=== PATIENT | male | born 1975 | race Caucasian/White ===

== ENCOUNTER 2022-03-23 12:32 | Outpatient (CLI) | payer OTHER, SELFPAY ==
--- NOTE | ~2022-03-23 | XR_ITS ---
Right Hand Technique: PA, oblique, and lateral views were obtained. Clinical History: Pain Findings: No acute fracture or dislocation is seen. Osseous alignment is anatomic. Joint spaces are p reserved. Soft tissues are unremarkable. Impression: Unremarkable right hand. Reviewed, dictated and finalized at location M. CAL STAFFING COORDINATOR Impression: Unremarkable right hand.
--- NOTE | ~2022-03-23 | XR_ITS ---
Right wrist Technique: PA, oblique, lateral, and ulnar deviation views were obtained. Clinical History: Pain Findings: No acute fracture or dislocation is seen. Osseous alignment is anatomic. Joint spaces are p reserved. Soft tissues are unremarkable. Impression: Unremarkable right wrist radiographs. Reviewed, dictated and finalized at location . RMATICA MDM DEVELOPER Impression: Unremarkable right wrist radiographs.
== END 2022-03-23 12:33 | disposition home or self-care (01) ==
LOC: ANHIMG 12:35
PROVIDERS: PCP Family Medicine; Visit Provider Physician Assistant
DX: M25.531 Pain in right wrist (principal)
CPT/HCPCS: 73110; 73130

== ENCOUNTER 2023-02-25 02:34 | Day surgery (SDC) | payer OTHER, SELFPAY ==
[2023-02-14 14:23] VITALS: BMI 32.8
--- NOTE | 2023-02-23 10:24 | SUR.PREOP ---
Patient called regarding upcoming procedure. Reviewed preop instructions, appointment times, and procedure prep.
[2023-02-25 09:45] VITALS: BP 125/88; PULSE 91; RESP 18; TEMP 36.4; O2SAT 100
[2023-02-25] MEDS: LACTATED RINGERS 1,000 ML 150 ML IV CONT (09:55)
--- NOTE | 2023-02-25 10:18 | WPDANESEPPF ---
Anes - Initial Pre Proc Eval Procedure: Operation Date: 02/25/23 11:00 Proposed Procedures p Screening Colonoscopy - Dominic Munguia MD Date/Time: 02/25/23 10:18 Surgeon: Dominic Munguia MD Pre Op Diagnosis: neoplasm screening Patient Data Age: 47 Gender: M Height: 1.73 m Weight: 98.2 kg Last Vital Signs Temp 97.6 F 02/25/23 09:45 Pulse 91 02/25/23 09:45 Resp 18 02/25/23 09:45 BP 125/88 02/25/23 09:45 Pulse Ox 100 02/25/23 09:45 O2 Del Method Room Air 02/25/23 09:45 Allergies Allergy/AdvReac Type Severity Reaction Status Date / Time No Known Allergies Allergy Verified 02/25/23 09:43 Home Medications Medication Instructions Recorded Confirmed Type No Home Medications 11/25/21 02/14/23 History Patient hx anesthesia problems: none Family hx anesthesia problems: none Results Review: All pre-operative results and documents have been reviewed as part of the pre-operative evaluation. 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 Surgical History Surgical History History of melanoma Family History Family History Father Diabetes mellitus Social History Social History Years smoked: 3 Smoking status: Former smoker Tobacco type: cigarettes Second hand tobacco smoke exposure: No Smoking end date: 03/21/10 Alcohol intake: current Alcohol use details: 2-3 drinks monthly Substance use: never Substance use type: does not use Living arrangements: with family Occupation/Education: occupation Gender identity (if verbalized by the patient): Male Spiritual care concerns: No Anes - Eval Final PreProcedure Day of Procedure 02/25/23 10:18 Patient weight: obese Heart: regular rate and rhythm Lungs: clear to auscultation Airway: Mallampati scale class II Neurological: alert and oriented Last oral intake: >/= 8 hours ASA classification: II Emergent: no Anesthetic plan: proceed Anesthesia type and monitoring: general GIVS and standard monitoring Results Review: All pre-operative results and documents have been reviewed as part of the pre-operative evaluation. Informed Consent: The patient's anesthetic plan and its attendant risks and benefits were discussed with the patient/family/POA. Questions were solicited and answers provided to the satisfaction of the patient/family/POA.
--- NOTE | 2023-02-25 10:40 | PM.HPGS ---
History of Present Illness History of Present Illness Consent: Risks, benefits, and alternatives have been discussed and questions answered. Patient agrees to proceed with procedure. Chief complaint: neoplasm screening Narrative: Bebo Turner Jr. is a 47 year old male here for first screening colonoscopy Review of Systems Constitutional: Constitutional: Denies headache(s) and Denies weakness Eyes: Eyes: Denies blurry vision ENT: Reports Normal hearing present, Denies headache(s) and Denies neck pain Cardiovascular: Cardiovascular: Denies chest pain and Denies dyspnea Respiratory: Respiratory: Denies dyspnea Gastrointestinal: Gastrointestinal: Reports no additional gastrointestinal complaints Genitourinary: Genitourinary: Denies dysuria Musculoskeletal: Musculoskeletal: Denies neck pain Integumentary/Breasts: Skin/Breast: Denies dry skin Neurologic: Reports Normal hearing present, Denies headache(s) and Denies weakness Psychiatric: Psychiatric: Denies anxiety Endocrine: Endocrine: Denies change in body appearance Hematologic/Lymphatic: Hematologic/Lymphatic: Denies easy bleeding Allergic/Immunologic: Allergic/Immunologic: Denies urticaria PMFSH Past Medical History Medical History (Updated 02/25/23 @ 10:41 by Dominic Munguia MD) Acquired hypothyroidism Allergic rhinitis Colon cancer screening Obesity 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 Surgical History Surgical History History of melanoma Family History Family History Father Diabetes mellitus Social History Social History Years smoked: 3 Smoking status: Former smoker Tobacco type: cigarettes Second hand tobacco smoke exposure: No Smoking end date: 03/21/10 Alcohol intake: current Alcohol use details: 2-3 drinks monthly Substance use: never Substance use type: does not use Living arrangements: with family Occupation/Education: occupation Gender identity (if verbalized by the patient): Male Spiritual care concerns: No Meds Home Medications and Allergies Home Medications Medication Instructions Recorded Confirmed Type No Home Medications 11/25/21 02/14/23 History Allergies Allergy/AdvReac Type Severity Reaction Status Date / Time No Known Allergies Allergy Verified 02/25/23 09:43 Vital Signs Vital Signs - 24 hr 02/25/23 09:45 Temperature 97.6 F Pulse Rate 91 Respiratory Rate 18 Blood Pressure 125/88 Pulse Oximetry 100 Oxygen Delivery Room Air Exam Const: General: comfortable and no acute distress HENMT: Face/Nose/Sinus: Normal nares present Eyes: General: appearance normal, both eyes and all related structures Neck: Neck: no JVD Resp: Auscultation: clear to auscultation bilaterally Cardio: Rate: regular rate Rhythm: regular rhythm GI: Inspection: non-distended GI Palp: Yes Soft to palpation Skin: General skin exam: normal color Neuro: General: gait normal Speech: normal speech Extrem: General: normal to inspection Psych: Mental Status: mental status grossly normal Assessment and Plan Assessment and plan (1) Colon cancer screening: Code(s): Z12.11 - Encounter for screening for malignant neoplasm of colon Status: Acute Assessment and Plan: colonoscopy
[2023-02-25 11:05] VITALS: BP 122/87; PULSE 72; RESP 17; O2SAT 100
[2023-02-25 11:15] VITALS: BP 125/84; PULSE 69; RESP 20; O2SAT 98
[2023-02-25 11:26] VITALS: BP 118/81; PULSE 63; RESP 17; O2SAT 98
== END 2023-02-25 11:44 | disposition home or self-care (01) ==
PROVIDERS: PCP Family Medicine; Visit Provider Internal Medicine Gastroenterology
PROC: 0DJD8ZZ Inspection of Lower Intestinal Tract, Via Natural or Artificial Opening Endoscopic (ICD-10-PCS; CPT 45378; principal; 2023-02-25 11:00)
DX: Z12.11 Encounter for screening for malignant neoplasm of colon (principal); D12.5 Benign neoplasm of sigmoid colon; Z87.891 Personal history of nicotine dependence; E66.9 Obesity, unspecified; Z68.32 Body mass index [BMI] 32.0-32.9, adult
CPT/HCPCS: 45385; 88305; J2001; J2704; J7120

== ENCOUNTER 2024-09-20 08:53 | Outpatient (CLI) | payer OTHER, SELFPAY ==
--- NOTE | ~2024-09-20 | MR_ITS ---
MRI of the right wrist Technique: Coronal T1 weighted and proton density fat sat images, and axial and sagittal proton-densi ty and proton-density fat-sat images were acquired. Clinical History: Pain Findings: Axial images are degraded by motion artifact. No evidence of scapholunate ligament tear or scapholunate interval widening. Lunotriquetral ligament appears intact. TFCC appears intact. Bone marrow signals are essentially unremarkable. No fracture or marrow edema seen. Joint spaces are intact. No evidence for erosive or inflammatory arthropathy. No joint effusion evident. Flexor and extensor tendons appear intact. No soft tissue mass or fluid collection seen. Possible mil d tendinosis of the extensor carpi ulnaris tendon. IMPRESSION: Possible mild tendinosis of the extensor carpi ulnaris tendon. No other significant abnormality identified. Reviewed, dictated and finalized at [facility].
== END 2024-09-20 08:54 | disposition home or self-care (01) ==
LOC: GOSHIMG 08:53
PROVIDERS: PCP Family Medicine; Visit Provider Orthopaedic Surgery
DX: M25.531 Pain in right wrist (principal)
CPT/HCPCS: 73221

== ENCOUNTER 2024-10-01 12:37 | Outpatient (CLI) | payer OTHER, SELFPAY | END 2024-10-01 12:38 | disposition home or self-care (01) | LOC: ANHBWCIMG 12:39 | PROVIDERS: PCP Family Medicine; Visit Provider Orthopaedic Surgery | DX: M25.562 Pain in left knee (principal) | CPT/HCPCS: 73564 ==

== ENCOUNTER 2024-10-10 13:45 | Outpatient (CLI) | payer OTHER, SELFPAY ==
--- NOTE | ~2024-10-10 | MR_ITS ---
EXAMINATION: MR knee LT wo con DATE: 10/10/2024 14:30 INDICATION: Left knee pain TECHNIQUE: Magnetic resonance imaging (MRI) of the left knee was performed without intravenous contra st. Sequences included coronal PD-weighted FSE, coronal PD-weighted FS FSE, sagittal T2-weighted FSE , sagittal PD-weighted FS FSE and axial PD weighted fat saturated FSE. COMPARISON: None. FINDINGS: Medial compartment: Medial meniscal with longitudinal horizontal tear plane extending from the body to the posterior horn There is subluxation of a meniscal flap from the anterior meniscal body. This extends into the infer ior gutter and there is truncation of the normally sharp free edge at the junction the anterior horn and body of the meniscus suggesting the tear may be complex with additional tear plane obscured by th e displacement of the meniscal flap. Articular cartilage is normal. Lateral compartment: Lateral meniscus is normal. Articular cartilage is normal. Patellofemoral compartment: Articular cartilage is normal. Ligaments and tendons: Anterior and posterior cruciate ligaments are normal. The medial collateral ligament and fibular ilana ateral ligament complex are normal. The extensor mechanism is normal. The visualized medial and later al hamstring tendons as well as the iliotibial band are normal. Fluid: Physiologic amount of fluid in the joint space. No loose osteochondral bodies identified. Osseous/other: Bone alignment is normal. There is focal marrow edema surrounding a small juxta articular erosion anibal ng the medial rim of the medial tibial plateau along side the displaced meniscal flap. Marrow signal is otherwise normal. No fracture or pathologic marrow replacing process. IMPRESSION: 1. Medial meniscal tear, likely complex with small displaced meniscal flap extending inferiorly from the anterior meniscal body. Reviewed, dictated and finalized at location A. IMPRESSION: 1. Medial meniscal tear, likely complex with small displaced meniscal flap exte nding inferiorly from the anterior meniscal body.
== END 2024-10-10 13:46 | disposition home or self-care (01) ==
LOC: GOSHIMG 13:45
PROVIDERS: PCP Family Medicine; Visit Provider Orthopaedic Surgery
DX: S83.242A Other tear of medial meniscus, current injury, left knee, initial encounter (principal); X58.XXXA Exposure to other specified factors, initial encounter
CPT/HCPCS: 73721

== ENCOUNTER 2024-11-22 01:27 | Day surgery (SDC) | payer OTHER, SELFPAY ==
--- OUTSIDE RECORDS SUMMARY | 2023-08-08 04:40 | XMS_ITS ---
Author Organization [facility] Address [address] [place], [place] [id number] Care Team Providers Care Research Technologist Name Role Phone Edvin Anaya Unavailable Unavailable JENY POOL Unavailable [phone] REASON FOR VISIT *Fungal nail check Encounters Encounter Location Date Provider Diagnosis [facility] [place] [address] [address] [facility] [address] [place], [place] [id number] 08/08/2023 JENY POOL Plan Of Treatment No Information Progress Notes * Bebo TURNERDOB:1975 (49 yo M)Acc No.[id number]:08/08/2023 Patient: Bebo FRANCO Provider: Brisa Pool DPM :1975 A ge:48 Y S ex:Male Date:08/08/2023 Address:[facility] [address] [facility] Subjective: * Chief Complaints: * 1 . *Fungal nail check. * Medical History: Objective: * Vitals: Assessment: Plan: * Treatment: * Billing Information: * Visit Code: * Procedure Codes: * Electronic signature of JENY POOL DPM on 11/22/2024 at 01:30 AM CDT Sign off status: Pending * Provider: Brisa Pool DPM Date: 08/08/2023 Generated for Stephanie narvaez/Sanjuana/eTransmitting on: 11/22/2024 01:30 AM CDT
[2024-11-13 09:29] VITALS: BMI 32.8
--- NOTE | 2024-11-13 09:39 | PC.NURSE ---
Report to the Outpatient Waiting Room, entrance under the green pavilion located off [facility], at time _0600_ on date 11/22/24. Planned Procedure Time: __0730_.? Time changes happen often and if your time is changed the preop area will call you the afternoon before. - You and your visitor will be asked to self-screen and do not enter if you have any COVID symptoms. Please call surgeon if you need to reschedule. - A mask is optional within the hospital at this time. Patients may have clear liquids (water, carbonated beverages, clear teas, apple juice) until 3 hours prior to surgery with a maximum of 20 ounces. - No food from midnight until time of surgery and no smoking, or chewing tobacco (or any form of nicotine). No chewing gum, candy or mints. - Infants may have breast milk until 4 hours before surgery, infant formula 6 hours prior to surgery. - Children will be allowed to drink immediately following surgery.? If applicable, please bring a bottle or sippy cup to assist with drinking. Juice, water, soda, and popsicles are readily available.? For infants on formula, please bring formula the day of surgery.? Pacifiers are allowed. Take only the following medications with a SIP of water on the morning of surgery: NONE DO NOT STOP ANY OF YOUR OTHER PRESCRIPTION MEDICATIONS PRIOR TO SURGERY EXCEPT THE FOLLOWING Hold all vitamins and supplements for 3 days per anesthesiologist. Medications to discontinue per physician Date to take last dose Please no make-up, nail cuban, hairspray, perfume, deodorant, or body powder the day of surgery.? No jewelry (including any body piercings) or valuables the day of surgery, leave them at home.? Please take a shower or bath the night before, or the morning of, surgery with an antibacterial soap.? Wear comfortable, loose fitting clothing.? Children are encouraged to wear pajamas. - Jewelry must be removed prior to entering the operating room.? Rings and piercings that are not removed may be cut off. - The hospital will not accept responsibility for valuables.? - Please leave all valuables, including medications, at home the day of surgery. If you are going home after surgery, a licensed class c truck driver must drive you home.? - NO public transportation without another adult if you receive anesthesia. - We recommend that an adult stay with you for 24 hours following discharge. - We also recommend that you do not drive, make important decision, drink alcoholic beverages, or take any drugs that were not prescribed by your health care provider for at least 24 hours after your discharge time. For Pediatric surgeries, we recommend two adults accompany the child home. Follow any additional instructions given to you from your surgeon. Telephone instructions given to _PATIENT_and asked if any additional questions and then verbalized understanding. Patient advised to call surgeon office or pre surgery nurse liaison [phone] if any additional questions.
--- NOTE | 2024-11-21 14:34 | P.HP_ITS ---
H&P: HPI History of Present Illness Date/Time: 11/21/24 14:34 Chief Complaint: Left knee pain Narrative: 49-year-old gentleman with left knee pain and swelling persistent for the past year. Initially started when twisted the left knee pulling a tree. Not relieved with conservative measures. MRI shows medial meniscus tear. Presents for operative treatment. Review of Systems Constitutional: Constitutional: Denies fever(s) Eyes: Eyes: Denies blurry vision ENT: Reports Normal hearing present Cardiovascular: Cardiovascular: Denies chest pain and Denies dyspnea Respiratory: Respiratory: Denies dyspnea and Denies wheezing Gastrointestinal: Gastrointestinal: Denies abdominal pain Genitourinary: Genitourinary: Denies urinary urgency Musculoskeletal: Musculoskeletal: Reports as per HPI and Denies numbness Integumentary/Breasts: Skin/Breast: Denies changing lesions and Denies sores Neurologic: Reports Normal hearing present, Denies behavioral changes, Denies confusion, Denies numbness and Denies convulsions Psychiatric: Psychiatric: Denies behavioral changes, Denies confusion and Denies hallucinations Endocrine: Endocrine: Denies heat intolerance Hematologic/Lymphatic: Hematologic/Lymphatic: Denies easy bleeding Allergic/Immunologic: Allergic/Immunologic: Denies wheezing COUNTS INCLUDE 234 BEDS AT THE [facility] Past Medical History Medical History (Updated 11/21/24 @ 14:35 by Willy Nichole MD) Left knee pain Acute medial meniscus tear of left knee History of colon polyps Family history of colon cancer Colon cancer screening 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 Obesity Allergic rhinitis Acquired hypothyroidism Surgical History Surgical History History of melanoma Family History Family History Father Diabetes mellitus Mother Carcinoma of colon Social History Social History Smoking packs per day: 0.20 Smoking cigarettes per day: 4.0 Years smoked: 3 Smoking pack-years: 0.60 Smoking status: Former smoker Tobacco type: cigarettes Second hand tobacco smoke exposure: No Smoking end date: 03/21/10 Additional smoking assessment comments: SMOKED DURING HIGH SCHOOL Alcohol intake: current Alcohol use details: 2 PER MONTH Substance use: never Substance use type: does not use Living arrangements: with family Occupation/Education: occupation Gender identity (if verbalized by the patient): Male Spiritual care concerns: No Meds Home Medications and Allergies Home Medications ?Medication ?Instructions ?Recorded ?Confirmed ?Type No Home Medications 11/25/21 11/13/24 H istory Allergies Allergy/AdvReac Type Severity Reaction Status Date / Time No Known Allergies Allergy Verified 11/13/24 09:29 Assessment and Plan Assessment and plan (1) Acute medial meniscus tear of left knee: Qualifiers: Encounter type: subsequent encounter Qualified Code(s): S83.242D - Other tear of medial meniscus, current injury, left knee, subsequent encounter Code(s): S83.242A - Other tear of medial meniscus, current injury, left knee, initial encounter Status: Acute Assessment and Plan: MRI of the left knee demonstrates medial meniscus tear, chondromalacia, effusion and synovitis. Failed conservative treatment. Discussed nonoperative and operative treatment options with the patient. Risks and benefits of each as well as alternatives were reviewed. All of the patient's questions were answered. The risks of surgery reviewed including but not limited to: Neurovascular damage, wound complication, infection, blood clot, pulmonary embolus, stroke, myocardial infarction, and anesthetic risks up to and including . Continued pain and possible dysfunction were explained. Specific risks of the procedure including later recurrence of deformity. No guarantees were offered. If complications occur, the patient understands the need for further treatment, possible further surgery. Patient verbalizes understanding and wishes to proceed. PLAN: Left knee arthroscopy with partial meniscectomy, chondroplasty, synovectomy, proceed as indicated. (2) Left knee pain: Qualifiers: Chronicity: acute Qualified Code(s): M25.562 - Pain in left knee Code(s): M25.562 - Pain in left knee Status: Acute
[2024-11-22] VITALS (7 sets, daily range): BP systolic 103–123; BP diastolic 62–87; PULSE 61–74; RESP 12–18; TEMP 36–36.8; O2SAT 96–100
--- OUTSIDE RECORDS SUMMARY | 2024-11-22 01:30 | XMS_ITS | Clinical Summary ---
Author Organization [facility] Address [address] [place] [address] Care Team Providers Care Outside Installer Apprentice Name Role Phone Edvin Anaya MD Primary Care Provider Allergies No known active allergies Medications levothyroxine sodium (TIROSINT) 50 mcg capsule Take 50 mcg by mouth daily. Active azithromycin (ZITHROMAX) 250 mg tablet Take 2 tabs (500 mg) by mouth today, than 1 tab (250 mg) daily for 4 days. 6 tablet 04/24/2022 Active Active Problems No known active problems Medical History Medical History Date Comments Hypothyroidism Family History Medical History Relation Name Comments Diabetes Father Relation Name Status Comments Father Social History Tobacco Use Types Packs/Day Years Used Date Smoking Tobacco: Former Smokeless Tobacco: Never Alcohol Use Standard Drinks/Week Comments Yes 0 (1 standard drink = 0.6 oz pur e alcohol) social Personal Safety Answer Date Recorded Getting School Help Needed Not on file 03/03 Sex and Gender Information Value Date Recorded Sex Assigned at Not on file Legal Sex Male 9:23 PM PROGRAM CHECKER Gender Identity Not on file Sexual Orientation Not on file Obstetrics History Last Filed Vital Signs Vital Sign Reading Time Taken Comments Blood Pressure 120/88 03/05/2023 10:24 AM PROGRAM CHECKER Pulse 92 03/05/2023 10:24 AM PROGRAM CHECKER Temperature 37.3 C (99.2 F) 03/05/2023 10:24 AM PROGRAM CHECKER Respiratory Rate 18 03/05/2023 10:24 AM PROGRAM CHECKER Oxygen Saturation 98% 03/05/2023 10:24 AM PROGRAM CHECKER Inhaled Oxygen Concentration - - Weight 95.3 kg (210 lb) 03/05/2023 10:24 AM PROGRAM CHECKER Height 172.7 cm (5' 8) 03/05/2023 10:24 AM PROGRAM CHECKER Body Mass Index 31.93 03/05/2023 10:24 AM PROGRAM CHECKER Plan of Treatment Health Maintenance Due Date Last Done Comments Colon Cancer Screening-Colonoscopy 1975 Depression Screening 1975 Hepatitis C Screening 1975 Hepatitis B Screening 07/12/1995 Regular Well Visit/Exam 18-64 07/12/1995 Covid-19 Vaccine ( season) 2024 09/14/2021, 08/07/2020, 07/09/2020 Influenza Vaccine (#1) 2024 , 01/07/2021, 01/01/2020, Additional history exists DTaP/Tdap/Td Vaccine (3 - Td or Tdap) 03/17/2032 03/17/2022, 12/08/2015 Pneumococcal vaccine <65 Aged Out No longer eligible based on patient's age to complete this topic Insurance [facility] Care Teams Outside Installer Apprentice Relationship Specialty Start Date End Date Edvin Anaya MD [address] [facility] [address] [place] [address] PCP - General 06/10/19
--- OUTSIDE RECORDS SUMMARY | 2024-11-22 01:30 | XMS_ITS | Patient Health Record ---
Author Organization [facility] Address [address] [place], [place] [id number] Care Team Providers Care Property Supervisor Name Role Phone Edvin Anaya Unavailable Unavailable Allergies No Known Allergies Reason For Referral No Information Immunizations Vaccine Route Administration Date Status Comme nts Pneumococcal conjugate PCV 13 Unknown 06/27/2023 Refuse d Influenza, high dose seasonal Unknown 06/27/2023 Refuse d Social History Tobacco Use: Social History Observation Description Date Details (start date - stop date) Smoker, current status unknown NA - NA Tobacco Control (Standard) Question Answer Notes Tobacco use: Smoker, current status unknown Plan Of Treatment Pending Test Test Name Order Date Liver Function Test (LFT) 06/27/2023 Insurance Providers Payer Name Payer Address Payer Phone Subscriber Number Group Number Insured Name Patient Relationship to Insured Coverage Start Date Coverage End Date [employer] [address] [place] [id number] Bebo Turner Self - patient is the insured Medical (General) History Medical History History ICD Code Diabetic
--- OUTSIDE RECORDS SUMMARY | 2024-11-22 01:30 | XMS_ITS | Clinical Summary ---
Author Organization [facility] [employer] Address [address] [place] [address] Care Team Providers Care Housekeeper Caregiver Name Role Phone Edvin Anaya MD Primary Care Provider Source Comments [facility] [employer],non-owned Affiliates and Associated Physician Practices is amultiple site organization consisting of ambulatory clinics and hospital sitesin [place], [place], [place] and [place]. This disclosure is being madepursuant to the Care Everywhere program and may not contain all information available regarding this patient. Last updated 17.[facility] [employer] Allergies No known active allergies Medications * Be aware that medications may not be up to date on this document. Alwaysverify current medications with the patient. 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 Gender Identity Not on file Sexual Orientation Not on file Last Filed Vital Signs Vital Sign Reading Time Taken Comments Blood Pressure 134/84 12/01/2020 3:32 PM CDT Pulse 90 12/01/2020 3:32 PM CDT Temperature 36.7 C (98.1 F) 12/01/2020 3:32 PM CDT Respiratory Rate 18 11/29/2020 2:33 PM CDT Oxygen Saturation 98% 12/01/2020 3:32 PM CDT Inhaled Oxygen Concentration - - Weight 95.3 kg (210 lb) 12/01/2020 3:32 PM CDT Height 170.2 cm (5' 7) 12/01/2020 3:32 PM CDT Body Mass Index 32.89 12/01/2020 3:32 PM CDT Plan of Treatment Health Maintenance Due Date Last Done Comments COLOGUARD (AGES 45-75) - COL ON CA SCREENING 1977 COLON MONITORING 1977 COLONOSCOPY - COLON CA SCREENING 1977 CT COLONOGRAPHY - COLON CA SCREENING 1977 Colorectal Cancer Screening 1977 FIT - COLON CA SCREENING 1977 FLEX SIG - COLON CA SCREENING 1977 LIPID TESTING 1977 HIV SCREENING 1992 HEPATITIS C SCREENING 07/07/1995 DTAP/TDAP/TD VACCINES (1 - Tdap) 1996 HEPATITIS B VACCINE (1 of 3 - 19+ 3-dose series) 1996 SCREENING FOR DIABETES 12/01/2020 COVID-19 VACCINE (1 - 2023-2 5 season) 2023 DEPRESSION SCREENING 03/21/2024 INFLUENZA VACCINE (#1) 2024 ZOSTER VACCINE (1 of 2) 07/12/2027 HIB VACCINE Aged Out No longer eligi ble based on patient's age to complete this topic HPV VACCINE Aged Out No longer eligi ble based on patient's age to complete this topic MENINGOCOCCAL (Group B) VACC INE SHARED DECISION-MAKING Aged Out No longer eligibl e based on patient's age to complete this topic MENINGOCOCCAL GROUPS A/C/Y/W VACCINE Aged Out No longer eligible b ased on patient's age to complete this topic PNEUMOCOCCAL VACCINE Aged Out No long er eligible based on patient's age to complete this topic [facility] [place]: [facility] [id number] [place] [address] FOR[facility]LY [facility] SELF PAY NO INSURANCE Member Subscriber Plan / Payer (Ef fective for All Dates) Name:Paola Turner Jr Member ID:Not on file Relation to Subscriber:Not on file Name:PAOLA TURNER Subscriber ID:Not on file Address: [facility] [place] [address] Payer ID:Not on file Group ID:Not on file Type:Self Pay Address: [place], [place] Care Teams Housekeeper Caregiver Relationship Specialty Start Date End Date Edvin Anaya MD [address] [place] [address] PCP - General Family Medicine 04/28/19
--- OUTSIDE RECORDS SUMMARY | 2024-11-22 01:30 | XMS_ITS | Encounter Summary ---
Author Organization [facility] Address [address] [facility] [place] [address] Care Team Providers Care Monorail Charger Operator Name Role Phone Edvin Anaya MD Primary Care Provider [phone] Encounter Details Date Type Department Care Team (Late st Contact Info) Description 09/08/2022 Lab Requisition [facility] - DermPath Lab [address] [facility] 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 Gender Identity Not on file Sexual Orientation Not on file documented as of this encounter Plan of Treatment Not on file documented as of this encounter Procedures Procedure Name Priority Date/Time Associated Diagnosis Comments DERMATOPATHOLOGY Routine 09/07/2022 12:0 0 AM CDT documented in this encounter Results * DERMATOPATHOLOGY (09/07/2022 12:00 AM CDT) Case Report Dermatopathology Report Case: [id number] Authorizing Provider: Howard Claudio MD Collected: 09/07/2022 12:00 AM Ordering Location: [facility] DermPath Lab Received: 09/09/2022 06:24 AM Pathologist: Mitchell Cash MD Specimen: Skin, right scalp 3 3:04 PM CDT DERMATOPATHOLOGY LABORATORY Final Diagnosis Specimen A. SKIN, right scalp: SEBORRHEIC KERATOSIS, IRRITATED AND INFLAMED (L82.0) 3 3:04 PM T DERMATOPATHOLOGY LABORATORY at 1504 CDT Clinical History Nevus vs MM Path#[id number] 3 3:04 PM CDT DERMATOPATHOLOGY LABORATORY Gross Description Specimen A: Received is one formalin filled container labeled with the patient's name and designated right scalp. The specimen consists of a shave biopsy measuring 7x16x2 and 2x9x1 mm. Jar 0. 3 3:04 PM CDT DERMATOPATHOLOGY LABORATORY Microscopic Description Specimen A. SKIN, right scalp: Sections show acanthosis, papillomatosis, hyperkeratosis, and squamous eddies. There is a lymphohistiocytic infiltrate within the papillary dermis. 3 3:04 PM CDT DERMATOPATHOLOGY LABORATORY Disclaimer An external and internal positive and negative controls are appropriate for the histochemical, immunohistochemical and immunofluorescence stain(s) in this case (if any), except where stated explicitly. The performance characteristics of the stain(s) cited in this report were developed and its performance characteristic determined by the Dermatopathology Laboratory at [facility], directed by Dr. Timoteo Cash. These tests need not be, and therefore are not, approved by the [place] Food and Drug Administration. The tests are used for clinical purposes. Billing Codes Specimen Charges Stain Charges 90193 1 3 3:04 PM CDT DERMATOPATHOLOGY LABORATORY Embedded Images 3 3:04 PM CDT DERMATOPATHOLOGY LABORATORY Pathology/Cytolog y TISSUE SPECIMEN FROM SKIN / Unknown 09/07/2022 09/09/2022 6:24 AM CDT us Howard Claudio MD LAB - PATHOLOGY/CYTOLOGY ORDER MATHIEU Final Result DERMATOPATHOLOGY LABORATORY [facility] - Department of Dermatology [address] [place], [place] [address] [place] [address] documented in this encounter Visit Diagnoses Not on filedocumented in this encounter Care Teams Monorail Charger Operator Relationship Specialty Start Date End Date Edvin Anaya MD [address] [place] [address] PCP - General Family Medicine 04/28/19 documented as of this encounter
[2024-11-22] MEDS: KETOROLAC 15 MG/ML VIAL (*BKC) IV PUSH (07:00)
[2024-11-22] MEDS: ACETAMINOPHEN 500 MG TABLET 1000 MG PO (07:00)
[2024-11-22] MEDS: LACTATED RINGERS 1,000 ML 30 ML IV CONT (07:00)
--- NOTE | 2024-11-22 07:16 | WPDANESEPPF ---
Anes - Initial Pre Proc Eval Procedure: Operation Date: 11/22/24 07:30 Proposed Procedures p Left Knee Arthroscopy, Debride Meniscus, Synovectomy, Chondroplasty, Proceed As Indicated - Willy Nichole MD Date/Time: 11/22/24 07:16 Surgeon: Willy Nichole MD Pre Op Diagnosis: left knee pain, medial meniscal tear,chondromylaci Patient Data Age: 49 Gender: M Height: 1.7 m Weight: 95 kg Allergies Allergy/AdvReac Type Severity Reaction Status Date / Time No Known Allergies Allergy Verified 11/13/24 09:29 Home Medications ?Medication ?Instructions ?Recorded ?Confirmed ?Type No Home Medications 11/25/21 11/13/24 History Patient hx anesthesia problems: none Family hx anesthesia problems: none Results Review: All pre-operative results and documents have been reviewed as part of the pre-operative evaluation. 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 Obesity Allergic rhinitis Acquired hypothyroidism Surgical History Surgical History History of melanoma Family History Family History Father Diabetes mellitus Mother Carcinoma of colon Social History Social History Smoking packs per day: 0.20 Smoking cigarettes per day: 4.0 Years smoked: 3 Smoking pack-years: 0.60 Smoking status: Former smoker Tobacco type: cigarettes Second hand tobacco smoke exposure: No Smoking end date: 03/21/10 Additional smoking assessment comments: SMOKED DURING HIGH SCHOOL Alcohol intake: current Alcohol use details: 2-3 drinks monthly Substance use: never Substance use type: does not use Living arrangements: with family Occupation/Education: occupation Gender identity (if verbalized by the patient): Male Spiritual care concerns: No Anes - Eval Final PreProcedure Day of Procedure 11/22/24 07:16 Patient weight: obese Heart: regular rate and rhythm Lungs: decreased breath sounds Airway: Mallampati scale class II Neurological: alert and oriented Last oral intake: >/= 8 hours ASA classification: II Emergent: no Anesthetic plan: proceed Anesthesia type and monitoring: general LMA and standard monitoring Results Review: All pre-operative results and documents have been reviewed as part of the pre-operative evaluation. Informed Consent: The patient's anesthetic plan and its attendant risks and benefits were discussed with the patient/family/POA. Questions were solicited and answers provided to the satisfaction of the patient/family/POA.
--- NOTE | 2024-11-22 07:23 | WPDHPUPDATE1 ---
History and Physical Update Update Date/Time: 11/22/24 07:23 History and Physical has been reviewed, including an updated exam of the patient. There are NO changes in the patient's condition. Risks, benefits, and alternatives have been discussed and questions answered. Patient agrees to proceed with procedure.
[2024-11-22] MEDS: ceFAZolin 2 GM in SODIUM CHLORIDE 0.9% IV 50 ML 100 ML IVPB (07:28)
[2024-11-22] MEDS: BUPivacaine HCL 0.25% PF 10 ML VIAL INFILTRATE (07:56)
--- NOTE | 2024-11-22 08:41 | P.OP_ITS ---
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 Surgeon Willy Nichole MD Studio Operations Manager Scrub Anesthesia General Indications 49 year old with left knee pain, catching and locking. MRI demonstrates medial meniscus tear, chondromalacia, synovitis. Has failed conservative treatment with therapy, cortisone injection, activity modification. Presents for operative treatment. Findings Complex tear of the posterior horn medial meniscus extending to the medial root. Complex tear of the body portion the medial meniscus with displacement of the torn flap inferior to the meniscus along tibia. Grade 2 chondromalacia patella articulation and grade 2 chondromalacia of the corresponding femoral trochlea. Grade 3 chondromalacia medial femoral condyle in the weight-bearing portion. Lateral meniscus and lateral compartment intact. ACL, PCL intact. Description of Procedure Informed consent given by patient. Operative extremity marked in preoperative holding area. Patient received intravenous antibiotics. Patient brought to operating room and underwent general anesthetic by anesthesia team. Positioned supine on operating room table. Left leg placed into a posterior thigh leg lorenzo. Foot of the table dropped to 90? and right leg padded out of the field. Time-out performed confirming patient, site of surgery and plan. Left knee prepped and draped in usual sterile surgical fashion using ChloraPrep skin solution. Standard arthroscopic portals made by using an 11 blade knife for the anterior lateral portal 1st. Capsule penetrated bluntly. Camera and inflow started. The above operative findings noted. Intra-articular visualization used to position the anterior medial portal using 22 gauge spinal needle. An 11 blade knife used for the skin and blunt penetration of the capsule. 4.7 millimeter arthroscopic shaver introduced and partial medial meniscectomy of the loose and torn portion performed. Edge of meniscus completed with arthroscopic Wand. Arthroscopic Wand used to perform chondroplasty of the patellofemoral articulation and the medial femoral condyle. There was extensive wear on the femoral trochlea through most of the trochlea. This was debrided with the arthroscopic Wand and the shaver and finished with the Wand. Shaver reintroduced and a synovectomy performed of the anterior fat pad and extensive synovium as well as medial and lateral plica and medial and lateral gutters. The loose hypertrophic synovium which was impinging in the patellofemoral space was excised. Bleeding points coagulated with Wand. Knee inspected, no loose pieces noted. 1 liter of irrigant infused and suctioned out. Arthroscopic cannulas removed. Skin closed with 4 O nylon interrupted suture. Local anesthetic with 0.25% Marcaine. Sterile dressing applied. Patient awoken from anesthesia, extubated and taken to recovery room in stable condition. All sponge needle and instrument counts correct at the end of the case. Implants None Estimated Blood Loss 5 Tourniquet Time Total Tourniquet Time: 0 Drains No Packing No Pathology None sent Complications None Condition Stable Disposition PACU [facility] Billing Surgery - Charge Forward: Surgery Billing ([id number])
== END 2024-11-22 10:12 | disposition home or self-care (01) ==
PROVIDERS: PCP Family Medicine; Visit Provider Orthopaedic Surgery
PROC: (CPT 29870; principal; 2024-11-22 07:30)
DX: S83.232A Complex tear of medial meniscus, current injury, left knee, initial encounter (principal); M65.862 Other synovitis and tenosynovitis, left lower leg; M22.42 Chondromalacia patellae, left knee; X50.0XXA Overexertion from strenuous movement or load, initial encounter; E66.9 Obesity, unspecified; Z68.32 Body mass index [BMI] 32.0-32.9, adult
CPT/HCPCS: 29881; 29876; J0690; A9270; J1100; J1885; J2250; J2405; J2704; J3010; J7120

== ENCOUNTER 2024-12-03 13:28 | Outpatient (CLI) | payer OTHER, SELFPAY ==
--- NOTE | ~2024-12-03 | XR_ITS ---
EXAM/ PROCEDURE: XR knee LT min 4V - 12/03/2024 13:29 CDT HISTORY: 49 years old Male with f/u meniscus repair, lt knee COMPARISON: None available TECHNIQUE: Three view(s) FINDINGS/ IMPRESSION: There are no fractures or dislocations.Joint space narrowing, subchondral sclerosis, subchondral cyst formation and osteophyte formation, compatible with mild osteoarthritis. Joint effusion seen. Reviewed, dictated and finalized at location N.
--- OUTSIDE RECORDS SUMMARY | 2024-12-03 16:00 | XMS_ITS | Clinical Summary ---
Author Organization [facility] Address [address] [place] [address] Care Team Providers Care Foreign Exchange Services Manager Name Role Phone Edvin Anaya MD Primary [...] on file Legal Sex Male 9:23 PM OYSTERMAN Gender Identity Not on file Sexual Orientation Not on file Obstetrics History Last Filed Vital Signs Vital Sign Reading Time Taken Comments Blood Pressure 120/88 03/05/2023 10:24 AM OYSTERMAN Pulse 92 03/05/2023 10:24 AM OYSTERMAN Temperature 37.3 C (99.2 F) 03/05/2023 10:24 AM OYSTERMAN Respiratory Rate 18 03/05/2023 10:24 AM OYSTERMAN Oxygen Saturation 98% 03/05/2023 10:24 AM OYSTERMAN Inhaled Oxygen Concentration - - Weight 95.3 kg (210 lb) 03/05/2023 10:24 AM OYSTERMAN Height 172.7 cm (5' 8) 03/05/2023 10:24 AM OYSTERMAN Body Mass Index 31.93 03/05/2023 10:24 AM OYSTERMAN Plan of Treatment Health Maintenance Due Date [...] patient's age to complete this topic Insurance [facility] [place] [facility] Care Teams Foreign Exchange Services Manager Relationship Specialty Start Date End Date Edvin Anaya MD [address] [facility] [address] [place] [address] PCP - General 06/10/19
--- OUTSIDE RECORDS SUMMARY | 2024-12-03 16:00 | XMS_ITS | Encounter Summary ---
Author Organization [facility] Address [address] [facility] [place] [address] Care Team Providers Care Machine Quilt Stuffer Name Role Phone Edvin Anaya MD Primary Care Provider [phone] Encounter Details Date Type Department Care Team (Late st Contact Info) Description 09/08/[address] 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 DermPath Lab Received: 09/09/2022 06:24 AM Pathologist: Mitchell Cash MD Specimen: Skin, right scalp 3 3:04 PM CDT DERMATOPATHOLOGY LABORATORY Final Diagnosis Specimen A. SKIN, right scalp: SEBORRHEIC KERATOSIS, IRRITATED AND INFLAMED (L82.0) 3 3:04 PM T DERMATOPATHOLOGY LABORATORY at 1504 CDT Clinical History Nevus vs MM Path#[id number] 3 3:04 PM CDT DERMATOPATHOLOGY LABORATORY Gross [...] characteristic determined by the Dermatopathology Laboratory at [facility], directed by Dr. Timoteo Cash. These tests need not be, and therefore are not, approved by the [place] Food and Drug Administration. The tests are used for clinical purposes. Billing Codes Specimen Charges Stain Charges 01846 1 3 3:04 PM CDT DERMATOPATHOLOGY LABORATORY Embedded Images 3 3:04 PM CDT DERMATOPATHOLOGY LABORATORY Pathology/Cytolog y TISSUE SPECIMEN FROM SKIN / Unknown 09/07/2022 09/09/2022 6:24 AM CDT us Howard Claudio MD LAB - PATHOLOGY/CYTOLOGY ORDER MATHIEU Final Result DERMATOPATHOLOGY LABORATORY [facility] - Department of Dermatology [address] [place], [place] [address] [place] [address] documented in this encounter Visit Diagnoses Not on filedocumented in this encounter Care Teams Machine Quilt Stuffer Relationship Specialty Start Date End Date Edvin Anaya MD [address] [place] [address] PCP - General Family Medicine 04/28/19 documented as of this encounter
--- OUTSIDE RECORDS SUMMARY | 2024-12-03 16:00 | XMS_ITS | Clinical Summary ---
Author Organization [facility] Address [address] [facility] [place] [address] Care Team Providers Care Box Closing Machine Operator Name Role Phone Edvin Anaya MD Primary Care Provider [phone] Source Comments [facility],non-owned Affiliates and Associated Physician Practices is amultiple site organization consisting of ambulatory clinics and hospital sitesin [place], [place], [place] and [place]. This disclosure is being madepursuant to the Care Everywhere program and may not contain all information available regarding this patient. 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 [place] Address: [facility] [address] [place] [address] [facility] SELF PAY NO INSURANCE Member Subscriber Plan / Payer (Ef fective for All Dates) Name:Paola Turner Jr Member ID:Not on file Relation to Subscriber:Not on file Name:PAOLA TURNER Subscriber ID:Not on file Address: [facility] [place] [address] Payer ID:Not on file Group ID:Not on file Type:Self Pay Address: [place], [place] Care Teams Box Closing Machine Operator Relationship Specialty Start Date End Date Edvin Anaya MD [address] [place] [address] PCP - General Family Medicine 04/28/19
== END 2024-12-03 13:29 | disposition home or self-care (01) ==
LOC: ANHBWCIMG 13:28
PROVIDERS: PCP Family Medicine; Visit Provider Orthopaedic Surgery
DX: M25.462 Effusion, left knee (principal)
CPT/HCPCS: 73564

== ENCOUNTER 2024-12-13 01:41 | Day surgery (SDC) | payer OTHER, SELFPAY ==
--- OUTSIDE RECORDS SUMMARY | 2023-08-08 04:40 | XMS_ITS ---
Author Organization [facility] Address [address] [place], [place] [id number] Care Team Providers Care Rodeo Performer Name Role Phone Edvin Anaya Unavailable Unavailable JENY POOL Unavailable [phone] REASON FOR VISIT *Fungal nail check Encounters Encounter Location Date Provider Diagnosis [facility] [place] [address] [address] [facility] [address] [place], [place] [id number] 08/08/2023 JENY POOL Plan Of Treatment No Information Progress Notes * Bebo TURNERDOB:1975 (49 yo M)Acc No.[id number]:08/08/2023 Patient: Bebo FRANCO Provider: Brisa Pool DPM :1975 A ge:48 Y S ex:Male Date:08/08/2023 Address:[facility] [address] [facility] Subjective: * Chief Complaints: * 1 . *Fungal nail check. * Medical History: Objective: * Vitals: Assessment: Plan: * Treatment: * Billing Information: * Visit Code: * Procedure Codes: * Electronic signature of JENY POOL DPM on 12/13/2024 at 01:43 AM CDT Sign off status: Pending * Provider: Brisa Pool DPM Date: 08/08/2023 Generated for Stephanie narvaez/Sanjuana/eTransmitting on: 0 12/13/2024 01:43 AM CDT
--- NOTE | 2024-12-04 08:29 | PC.NURSE ---
Report to the Outpatient Waiting Room, entrance under the green pavilion located off [facility], at time _1130_ on date _[id number]_. Planned Procedure Time: _130pm_.? Time changes happen often and if your time is changed the preop area will call you the afternoon before. - You and your visitor will be asked to self-screen and do not enter if you have any COVID symptoms. Please call surgeon if you need to reschedule. - A mask is optional within the hospital at this time. Patients may have clear liquids (water, carbonated beverages, clear teas, apple juice) until 3 hours prior to surgery with a maximum of 20 ounces. - No food from midnight until time of surgery and no smoking, or chewing tobacco (or any form of nicotine). No chewing gum, candy or mints. Take only the following medications with a SIP of water on the morning of surgery: ___None____ DO NOT STOP ANY OF YOUR OTHER PRESCRIPTION MEDICATIONS PRIOR TO SURGERY EXCEPT THE FOLLOWING Hold all vitamins and supplements for 3 days per anesthesiologist. Medications to discontinue per physician ___Ibuprofen____ Date to take last eyyt__[phone]____ Please no make-up, nail congolese, hairspray, perfume, deodorant, or body powder the day of surgery.? No jewelry (including any body piercings) or valuables the day of surgery, leave them at home.? Please take a shower or bath the night before, or the morning of, surgery with an antibacterial soap.? Wear comfortable, loose fitting clothing.? - Jewelry must be removed prior to entering the operating room.? Rings and piercings that are not removed may be cut off. - The hospital will not accept responsibility for valuables.? - Please leave all valuables, including medications, at home the day of surgery. If you are going home after surgery, a licensed chuck wagon driver must drive you home.? - NO public transportation without another adult if you receive anesthesia. - We recommend that an adult stay with you for 24 hours following discharge. - We also recommend that you do not drive, make important decision, drink alcoholic beverages, or take any drugs that were not prescribed by your health care provider for at least 24 hours after your discharge time. Follow any additional instructions given to you from your surgeon. Telephone instructions given to __Blake__and asked if any additional questions and then verbalized understanding. Patient advised to call surgeon office or pre surgery nurse liaison [phone] if any additional questions.
[2024-12-04 08:36] VITALS: BMI 32.8
--- OUTSIDE RECORDS SUMMARY | 2024-12-13 01:43 | XMS_ITS | Clinical Summary ---
Author Organization [facility] Address [address] [place] [address] Care Team Providers Care Biofuels Production Technician Name Role Phone Edvin Anaya MD Primary Care Provider [phone] Source Comments [facility],non-owned Affiliates and Associated Physician Practices is amultiple site organization consisting of ambulatory clinics and hospital sitesin [place], [place], [place] and [place]. This disclosure is being madepursuant to the Care Everywhere program and may not contain all information available regarding this patient. 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 Gender Identity Not on file Sexual [...] patient's age to complete this topic Insurance [facility] Address: [facility] [id number] [place] [address] [facility] SELF PAY NO INSURANCE Member Subscriber Plan / Payer (Ef fective for All Dates) Name:Paola Turner Jr Member ID:Not on file Relation to Subscriber:Not on file Name:PAOLA TURNER Subscriber ID:Not on file Address: [facility] [place] [address] Payer ID:Not on file Group ID:Not on file Type:Self Pay Address: [place], [place] Care Teams Biofuels Production Technician Relationship Specialty Start Date End Date Edvin Anaya MD [address] [place] [address] PCP - General Family Medicine 04/28/19
--- OUTSIDE RECORDS SUMMARY | 2024-12-13 01:43 | XMS_ITS | Clinical Summary ---
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 Gender Identity Not on file Sexual Orientation Not on file Obstetrics History Last Filed Vital Signs Vital Sign Reading Time Taken Comments Blood Pressure 120/88 03/05/2023 10:24 AM INSURANCE MARKETING REP Pulse 92 03/05/2023 10:24 AM INSURANCE MARKETING REP Temperature 37.3 C (99.2 F) 03/05/2023 10:24 AM INSURANCE MARKETING REP Respiratory Rate 18 03/05/2023 10:24 AM INSURANCE MARKETING REP Oxygen Saturation 98% 03/05/2023 10:24 AM INSURANCE MARKETING REP Inhaled Oxygen Concentration - - Weight 95.3 kg (210 lb) 03/05/2023 10:24 AM INSURANCE MARKETING REP Height 172.7 cm (5' 8) 03/05/2023 10:24 AM INSURANCE MARKETING REP Body Mass Index 31.93 03/05/2023 10:24 AM INSURANCE MARKETING REP Plan of Treatment Health Maintenance Due Date [...] patient's age to complete this topic Insurance [facility] Care Teams Blood Bank Order Control Clerk Relationship Specialty Start Date End Date Edvin Anaya MD [address] [facility] [address] [place] [address] PCP - General 06/10/19
--- OUTSIDE RECORDS SUMMARY | 2024-12-13 01:43 | XMS_ITS | Patient Health Record ---
Author Organization [facility] Address [address] [place], [place] [id number] Care Team Providers Care Tab Cutter Name Role Phone Edvin Anyaa Unavailable Unavailable Allergies No Known Allergies Reason [...] Date Coverage End Date [employer] [address] [place] [phone] [id number] Bebo Turner Self - patient is the insured Medical (General) History Medical History History ICD Code Diabetic
--- OUTSIDE RECORDS SUMMARY | 2024-12-13 01:43 | XMS_ITS | Encounter Summary ---
Author Organization [facility] Address [address] [place] [address] Care Team Providers Care Health Sciences Manager Name Role Phone Edvin Anaya MD Primary Care Provider [phone] Encounter Details Date Type Department Care Team (Late st Contact Info) Description 09/08/2022 Lab Requisition [facility] - DermPath Lab [address] [place] [address] Howard Claudio MD [address] [place] [id number] Social History Tobacco Use Types Packs/Day Years Used Date Smoking Tobacco: Former Smokeless Tobacco: Never Sex and Gender Information Value Date Recorded Sex Assigned at Not on file 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 Gender Identity Not on file Sexual Orientation Not on file documented as of this encounter Plan of Treatment Not on file documented as of this encounter Procedures Procedure Name Priority Date/Time Associated Diagnosis Comments DERMATOPATHOLOGY Routine 09/07/2022 12:0 0 AM CDT documented in this encounter Results * DERMATOPATHOLOGY (09/07/2022 12:00 AM CDT) Case Report Dermatopathology Report Case: [id number] Authorizing Provider: Howard Claudio MD Collected: 09/07/2022 12:00 AM Ordering Location: [facility] DermPath Lab Received: 09/09/2022 06:24 AM Pathologist: Mitchell Cash MD Specimen: Skin, right scalp 3 3:04 PM CDT DERMATOPATHOLOGY LABORATORY Final Diagnosis Specimen A. SKIN, right scalp: SEBORRHEIC KERATOSIS, IRRITATED AND INFLAMED (L82.0) 3 3:04 PM T DERMATOPATHOLOGY LABORATORY at 1504 CDT Clinical History Nevus vs MM Path#[id number] 3 3:04 PM CDT DERMATOPATHOLOGY LABORATORY Gross [...] characteristic determined by the Dermatopathology Laboratory at [facility], directed by Dr. Timoteo Cash. These tests need not be, and therefore are not, approved by the [place] Food and Drug Administration. The tests are used for clinical purposes. Billing Codes Specimen Charges Stain Charges 50540 1 3 3:04 PM CDT DERMATOPATHOLOGY LABORATORY Embedded Images 3 3:04 PM CDT DERMATOPATHOLOGY LABORATORY Pathology/Cytolog y TISSUE SPECIMEN FROM SKIN / Unknown 09/07/2022 09/09/2022 6:24 AM CDT us Howard Claudio MD LAB - PATHOLOGY/CYTOLOGY ORDER MATHIEU Final Result DERMATOPATHOLOGY LABORATORY [facility] - Department of Dermatology [address] [place], [place] [id number] [place] [address] documented in this encounter Visit Diagnoses Not on filedocumented in this encounter Care Teams Health Sciences Manager Relationship Specialty Start Date End Date Edvin Anaay MD [address] [place] [address] PCP - General Family Medicine 04/28/19 documented as of this encounter
--- NOTE | 2024-12-13 11:42 | WPDHPUPDATE1 ---
History and Physical Update Update Date/Time: 12/13/24 11:42 History and Physical has been reviewed, including an updated exam of the patient. There are NO changes in the patient's condition. Risks, benefits, and alternatives have been discussed and questions answered. Patient agrees to proceed with procedure.
[2024-12-13 12:00] VITALS: BP 133/94; PULSE 80; RESP 16; TEMP 36.8; O2SAT 98
[2024-12-13] MEDS: LACTATED RINGERS 1,000 ML 30 ML IV CONT (13:06)
[2024-12-13] MEDS: KETOROLAC 15 MG/ML VIAL (*BKC) IV PUSH (13:09)
[2024-12-13] MEDS: ACETAMINOPHEN 500 MG TABLET 1000 MG PO (13:09)
[2024-12-13] MEDS: ceFAZolin 2 GM in SODIUM CHLORIDE 0.9% IV 50 ML 100 ML IVPB (15:35)
[2024-12-13] MEDS: BUPivacaine HCL 0.5% 10 ML AMP 20 ML INFILTRATE (15:45)
[2024-12-13 16:32] VITALS: BP 112/73; PULSE 76; RESP 11; O2SAT 98
--- NOTE | 2024-12-13 16:36 | W.PM.PROC2 ---
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 Unrelieved with cortisone injection. MRI shows split tear of the extensor tendon carpi ulnaris. Presents for operative treatment. Findings Split tear of extensor carpi ulnaris at the level of the ulnar styloid. Description of Procedure Patient identified in the preoperative holding. Informed consent given. Operative extremity marked. Patient received intravenous antibiotics. Patient brought to the operating room where underwent general anesthetic by anesthesia team. Positioned supine on operating room table. Time-out performed confirming the patient, site of the surgery and the plan. Right hand and wrist prepped and draped usual sterile surgical fashion using ChloraPrep skin solution. Hand and wrist exsanguinated and arm tourniquet inflated to 250 mmHg. Local anesthetic with 0.5% Marcaine with epinephrine. Longitudinal incision made over the ulnar styloid with a 15 blade knife. Hemostasis control liked cautery. Blunt dissection carried down to the fascia. The extensor fascia was incised in line with the skin incision. This allowed visualization of the dorsal compartment with extensor carpi ulnaris tendon. The tendon sheath was then incised in line with skin incision. The tendon was brought out of the sheath and noted to have a split tear. This was excised distally and proximally. There is also muscle belly and synovium extending into the sheath. This was all sharply debrided. Approximately 75% of tendon was left intact. This was thoroughly irrigated with saline. The tendon was returned to the tendon sheath at the ulnar styloid and the sheath was closed with 3-0 Monocryl interrupted suture. Subcutaneous tissue repaired with 3-0 Monocryl interrupted suture and skin repaired with 3-0 Monocryl running subcuticular stitch and Steri-Strips. Sterile dressing applied. Tourniquet released. Good capillary refill noted in all the fingers and thumb. The patient was then woken from anesthesia, extubated and taken to the recovery room in stable condition. All sponge, needle, instrument counts were correct at the end of the case. Implants None Estimated Blood Loss 5 Tourniquet Time Total Tourniquet Time: 30 Drains No Packing No Pathology None sent Complications None Condition Stable Disposition PACU [facility] Billing Surgery - Charge Forward: Surgery Billing ([id number])
[2024-12-13 16:45] VITALS: BP 106/78; PULSE 83; RESP 20; O2SAT 98
[2024-12-13 17:00] VITALS: BP 121/72; PULSE 78; RESP 17
[2024-12-13 17:15] VITALS: BP 115/76; PULSE 80; RESP 16
[2024-12-13] MEDS: oxyCODONE HCL (*CRX) 5 MG TAB IR PO (17:27)
[2024-12-13 17:30] VITALS: BP 91/72; PULSE 100
--- NOTE | 2025-01-14 18:37 | WPDANESEPPF ---
Anes - Initial Pre Proc Eval Procedure: Operation Date: 12/13/24 13:30 Proposed Procedures p Right Wrist Extensor Tendon Reconstruction - Willy Nichole MD Date/Time: 01/14/25 18:37 Surgeon: Willy Nichole MD Pre Op Diagnosis: right wrist extensor tendon sublexation Patient Data Age: 49 Gender: M Height: 1.7 m Weight: 97 kg Last Vital Signs Temp 36.8 C 12/13/24 12:00 Pulse 100 12/13/24 17:30 Resp 16 12/13/24 17:15 BP 91/72 L 12/13/24 17:30 Pulse Ox 98 12/13/24 16:45 O2 Del Method Room Air 12/13/24 17:30 O2 Flow Rate 8 12/13/24 16:32 Allergies Allergy/AdvReac Type Severity Reaction Status Date / Time No Known Allergies Allergy Verified 01/14/25 12:39 Home Medications ?Medication ?Instructions ?Recorded ?Confirmed ?Type hydrocodone 7.5 mg-acetaminophen 1 tablet PO Q6H PRN pain #20 tabs 12/13/24 01/14/25 Rx 325 mg tablet ibuprofen 800 mg tablet 800 mg PO TID PRN pain #30 tabs 12/13/24 01/14/25 Rx Patient hx anesthesia problems: none Family hx anesthesia problems: none Results Review: All pre-operative results and documents have been reviewed as part of the pre-operative evaluation. [facility] Past Medical History Medical History Left knee pain Acute medial meniscus tear of left knee History of colon polyps Family history of colon cancer Colon cancer screening 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 Obesity Allergic rhinitis Acquired hypothyroidism Surgical History Surgical History History of melanoma Family History Family History Father Diabetes mellitus Mother Carcinoma of colon Social History Social History Smoking packs per day: 0.20 Smoking cigarettes per day: 4.0 Years smoked: 3 Smoking pack-years: 0.60 Smoking status: Former smoker Tobacco type: cigarettes Second hand tobacco smoke exposure: No Smoking end date: 03/21/10 Additional smoking assessment comments: smoked during high school. Alcohol intake: current Alcohol use details: 2-3 drinks monthly Substance use: never Substance use type: does not use Living arrangements: with family Occupation/Education: occupation Gender identity (if verbalized by the patient): Male Spiritual care concerns: No Anes - Eval Final PreProcedure Day of Procedure 01/14/25 18:37 Patient weight: obese ASA classification: II Emergent: no Anesthetic plan: proceed Anesthesia type and monitoring: general LMA and standard monitoring Results Review: All pre-operative results and documents have been reviewed as part of the pre-operative evaluation. Informed Consent: The patient's anesthetic plan and its attendant risks and benefits were discussed with the patient/family/POA. Questions were solicited and answers provided to the satisfaction of the patient/family/POA.
== END 2024-12-13 17:51 | disposition home or self-care (01) ==
PROVIDERS: PCP Family Medicine; Visit Provider Orthopaedic Surgery
PROC: (CPT 25295; principal; 2024-12-13 13:30)
DX: S56.511A Strain of other extensor muscle, fascia and tendon at forearm level, right arm, initial encounter (principal); E03.9 Hypothyroidism, unspecified; X58.XXXA Exposure to other specified factors, initial encounter; Z79.891 Long term (current) use of opiate analgesic; Z79.1 Long term (current) use of non-steroidal anti-inflammatories (NSAID); Z87.891 Personal history of nicotine dependence; Z86.0100 Personal history of colon polyps, unspecified; Z85.820 Personal history of malignant melanoma of skin; Z80.0 Family history of malignant neoplasm of digestive organs
CPT/HCPCS: 25295; J0690; A9270; J1885; J2003; J2250; J2405; J2704; J3010; J7120